=== PATIENT | male | born 1960 | race Caucasian/White ===

== ENCOUNTER 2018-04-05 17:40 | Observation (INO) | payer OTHER ==
[2018-04-05] MEDS ORDERED: SODIUM CHLORIDE 0.9% 500 ML IV STA (18:02)
--- NOTE | 2018-04-05 18:06 | ED ---
General Adult HPI - General Chief complaint: Chest Pain Stated complaint: chest pain Time Seen by Provider: 04/05/18 17:50 Source: patient, RN notes reviewed, old records reviewed Mode of arrival: wheelchair Limitations: no limitations - History of Present Illness Initial comments: 57-year-old male presents for evaluation of generalized weakness, fatigue and some heart palpitations. Patient states that on he was moving some furniture, did become quite fatigued. He states he rested all day Friday. At this time he had some central chest pain and palpitations. Patient is uncertain if this was pain or more of "anxiety in the chest". No radiating symptoms. His had some nausea without significant vomiting. No diarrhea. No fever but he has been chilled. Patient is on [place] 10 for chronic low back pain , he states he may have taken an extra one of these on Friday. Denies any significant worsening of his chronic low back pain. No abdominal pain. Denies diaphoresis. No known history of CAD. - Related Data Allergies Allergy/AdvReac Type Severity Reaction Status Date / Time levofloxacin [From Levaquin] Allergy Unknown Verified 04/05/18 17:46 Review of Systems ROS Statement: Those systems with pertinent positive or pertinent negative responses have been documented in the HPI. ROS Other: All systems not noted in ROS Statement are negative. Past Medical History Past Medical History: Hyperlipidemia History of Any Multi-Drug Resistant Organisms: None Reported Past Surgical History: Orthopedic Surgery Additional Past Surgical History / Comment(s): back and neck surgery Past Psychological History: No Psychological Hx Reported Smoking Status: Former smoker Past Alcohol Use History: Daily Past Drug Use History: None Reported General Exam Limitations: no limitations General appearance: alert, in no apparent distress Head exam: Present: atraumatic, normocephalic Eye exam: Present: normal appearance, PERRL, EOMI ENT exam: Present: normal exam Neck exam: Present: normal inspection. Absent: tenderness, meningismus Respiratory exam: Present: normal lung sounds bilaterally. Absent: respiratory distress Cardiovascular Exam: Present: regular rate, normal rhythm GI/Abdominal exam: Present: soft. Absent: distended, tenderness Extremities exam: Present: normal inspection, normal capillary refill. Absent: pedal edema Neurological exam: Present: alert, oriented X3, CN II-XII intact. Absent: motor sensory deficit Psychiatric exam: Present: normal affect, normal mood Skin exam: Present: warm, dry, intact. Absent: cyanosis, diaphoretic Course Vital Signs 04/05/18 04/05/18 17:41 18:19 Temperature 98.6 F Pulse Rate 79 56 L Respiratory 16 18 Rate Blood Pressure 187/101 156/87 O2 Sat by Pulse 99 99 Oximetry - Reevaluation(s) Reevaluation #1: 04/05/18 19:12 On reevaluation, patient has continued palpitations and mild chest tightness. EKG Findings - EKG Comments: EKG Findings:: EKG shows sinus bradycardia with marked sinus arrhythmia, rate of 52, CO interval 124, QRS duration 90, QTC [address] segment elevation Medical Decision Making - Medical Decision Making 57-year-old male with chest pain and palpitations. Chest x-ray obtained, negative for focal pneumonia or acute findings. EKG shows sinus bradycardia with sinus arrhythmia no definitive signs of ischemia. CBC is unremarkable, CMP within normal limits. Initial troponin is negative. Urinalysis does show 1 + ketones, there may be a component of dehydration. Patient will be placed in observation for telemetry, serial cardiac enzymes, and cardiology consultation. - Lab Data Result diagrams: 04/05/18 18:05 04/05/18 18:05 Lab Results 04/05/18 04/05/18 04/05/18 Range/Units 18:05 18:05 18:05 WBC 7.1 (3.8-10.6) k/uL RBC 4.59 (4.30-5.90) m/uL Hgb 14.3 (13.0-17.5) gm/dL Hct 41.1 (39.0-53.0) % MCV 89.6 (80.0-100.0) fL MCH 31.1 (25.0-35.0) pg MCHC 34.7 (31.0-37.0) g/dL RDW 12.8 (11.5-15.5) % Plt Count 169 (150-450) k/uL Neutrophils % 54 % Lymphocytes % 34 % Monocytes % 8 % Eosinophils % 2 % Basophils % 0 % Neutrophils # 3.8 (1.3-7.7) k/uL Lymphocytes # 2.4 (1.0-4.8) k/uL Monocytes # 0.5 (0-1.0) k/uL Eosinophils # 0.1 (0-0.7) k/uL Basophils # 0.0 (0-0.2) k/uL PT (9.0-12.0) sec INR (<1.2) APTT (22.0-30.0) sec D-Dimer (<0.60) mg/L FEU Sodium 142 (137-145) mmol/L Potassium 3.7 (3.5-5.1) mmol/L Chloride 107 (98-107) mmol/L Carbon Dioxide 22 (22-30) mmol/L Anion Gap 13 mmol/L BUN 14 (9-20) mg/dL Creatinine 0.80 (0.66-1.25) mg/dL Est GFR (CKD-EPI)AfAm >90 (>60 ml/min/1.73 sqM) Est GFR (CKD-EPI)NonAf >90 (>60 ml/min/1.73 sqM) Glucose 98 (74-99) mg/dL Plasma Lactic Acid [place] (0.7-2.0) mmol/L Calcium 9.4 (8.4-10.2) mg/dL Magnesium 2.1 (1.6-2.3) mg/dL Total Bilirubin 0.7 (0.2-1.3) mg/dL AST 29 (17-59) U/L ALT 41 (21-72) U/L Alkaline Phosphatase 49 (38-126) U/L Total Creatine Kinase 224 H (55-170) U/L CK-MB (CK-2) 0.8 (0.0-2.4) ng/mL CK-MB (CK-2) Rel Index 0.4 Troponin I <0.012 (0.000-0.034) ng/mL NT-Pro-B Natriuret Pep pg/mL Total Protein 6.4 (6.3-8.2) g/dL Albumin 4.4 (3.5-5.0) g/dL Urine Color Urine Appearance (Clear) Urine pH (5.0-8.0) Ur Specific [place] (1.001-1.035) Urine Protein (Negative) Urine Glucose (UA) (Negative) Urine Ketones (Negative) Urine Blood (Negative) Urine Nitrite (Negative) Urine Bilirubin (Negative) Urine Urobilinogen (<2.0) mg/dL Ur Leukocyte Esterase (Negative) 04/05/18 04/05/18 04/05/18 Range/Units 18:05 18:05 18:05 WBC (3.8-10.6) k/uL RBC (4.30-5.90) m/uL Hgb (13.0-17.5) gm/dL Hct (39.0-53.0) % MCV (80.0-100.0) fL MCH (25.0-35.0) pg MCHC (31.0-37.0) g/dL RDW (11.5-15.5) % Plt Count (150-450) k/uL Neutrophils % % Lymphocytes % % Monocytes % % Eosinophils % % Basophils % % Neutrophils # (1.3-7.7) k/uL Lymphocytes # (1.0-4.8) k/uL Monocytes # (0-1.0) k/uL Eosinophils # (0-0.7) k/uL Basophils # (0-0.2) k/uL PT 11.4 (9.0-12.0) sec INR 1.2 H (<1.2) APTT 24.8 (22.0-30.0) sec D-Dimer (<0.60) mg/L FEU Sodium (137-145) mmol/L Potassium (3.5-5.1) mmol/L Chloride (98-107) mmol/L Carbon Dioxide (22-30) mmol/L Anion Gap mmol/L BUN (9-20) mg/dL Creatinine (0.66-1.25) mg/dL Est GFR (CKD-EPI)AfAm (>60 ml/min/1.73 sqM) Est GFR (CKD-EPI)NonAf (>60 ml/min/1.73 sqM) Glucose (74-99) mg/dL Plasma Lactic Acid [place] 1.0 (0.7-2.0) mmol/L Calcium (8.4-10.2) mg/dL Magnesium (1.6-2.3) mg/dL Total Bilirubin (0.2-1.3) mg/dL AST (17-59) U/L ALT (21-72) U/L Alkaline Phosphatase (38-126) U/L Total Creatine Kinase (55-170) U/L CK-MB (CK-2) (0.0-2.4) ng/mL CK-MB (CK-2) Rel Index Troponin I (0.000-0.034) ng/mL NT-Pro-B Natriuret Pep 122 pg/mL Total Protein (6.3-8.2) g/dL Albumin (3.5-5.0) g/dL Urine Color Urine Appearance (Clear) Urine pH (5.0-8.0) Ur Specific [place] (1.001-1.035) Urine Protein (Negative) Urine Glucose (UA) (Negative) Urine Ketones (Negative) Urine Blood (Negative) Urine Nitrite (Negative) Urine Bilirubin (Negative) Urine Urobilinogen (<2.0) mg/dL Ur Leukocyte Esterase (Negative) 04/05/18 04/05/18 Range/Units 18:05 18:15 WBC (3.8-10.6) k/uL RBC (4.30-5.90) m/uL Hgb (13.0-17.5) gm/dL Hct (39.0-53.0) % MCV (80.0-100.0) fL MCH (25.0-35.0) pg MCHC (31.0-37.0) g/dL RDW (11.5-15.5) % Plt Count (150-450) k/uL Neutrophils % % Lymphocytes % % Monocytes % % Eosinophils % % Basophils % % Neutrophils # (1.3-7.7) k/uL Lymphocytes # (1.0-4.8) k/uL Monocytes # (0-1.0) k/uL Eosinophils # (0-0.7) k/uL Basophils # (0-0.2) k/uL PT (9.0-12.0) sec INR (<1.2) APTT (22.0-30.0) sec D-Dimer 0.32 (<0.60) mg/L FEU Sodium (137-145) mmol/L Potassium (3.5-5.1) mmol/L Chloride (98-107) mmol/L Carbon Dioxide (22-30) mmol/L Anion Gap mmol/L BUN (9-20) mg/dL Creatinine (0.66-1.25) mg/dL Est GFR (CKD-EPI)AfAm (>60 ml/min/1.73 sqM) Est GFR (CKD-EPI)NonAf (>60 ml/min/1.73 sqM) Glucose (74-99) mg/dL Plasma Lactic Acid [place] (0.7-2.0) mmol/L Calcium (8.4-10.2) mg/dL Magnesium (1.6-2.3) mg/dL Total Bilirubin (0.2-1.3) mg/dL AST (17-59) U/L ALT (21-72) U/L Alkaline Phosphatase (38-126) U/L Total Creatine Kinase (55-170) U/L CK-MB (CK-2) (0.0-2.4) ng/mL CK-MB (CK-2) Rel Index Troponin I (0.000-0.034) ng/mL NT-Pro-B Natriuret Pep pg/mL Total Protein (6.3-8.2) g/dL Albumin (3.5-5.0) g/dL Urine Color Yellow Urine Appearance Clear (Clear) Urine pH 7.5 (5.0-8.0) Ur Specific [place] 1.020 (1.001-1.035) Urine Protein Trace H (Negative) Urine Glucose (UA) Negative (Negative) Urine Ketones 1+ H (Negative) Urine Blood Negative (Negative) Urine Nitrite Negative (Negative) Urine Bilirubin Negative (Negative) Urine Urobilinogen <2.0 (<2.0) mg/dL Ur Leukocyte Esterase Negative (Negative) Disposition Clinical Impression: Chest pain Disposition: [facility] Condition: Stable Is patient prescribed a controlled substance at d/c from ED?: No Referrals: Edi Michelle MD [Primary Care Provider] - 1-2 days Decision to Admit Reason: Admit from EC Decision Date: 04/05/18 Decision Time: 20:16
[2018-04-05 18:21] LABS: Basophils % (A) 0 %; Eosinophils # (A) 0.1 k/uL (0-0.7); Eosinophils % (A) 2 %; HCT 41.1 % (39.0-53.0); HGB 14.3 gm/dL (13.0-17.5); Lymphocytes # (A) 2.4 k/uL (1.0-4.8); Lymphocytes % (A) 34 %; MCH 31.1 pg (25.0-35.0); MCHC 34.7 g/dL (31.0-37.0); MCV 89.6 fL (80.0-100.0); Mean Platelet Volume 6.6; Monocytes # (A) 0.5 k/uL (0-1.0); Monocytes % (A) 8 %; Neutrophils # (A) 3.8 k/uL (1.3-7.7); Neutrophils % (A) 54 %; Platelet Count 169 k/uL (150-450); RBC 4.59 m/uL (4.30-5.90); RDW 12.8 % (11.5-15.5); WBC 7.1 k/uL (3.8-10.6)
[2018-04-05 18:34] LABS: ALT 41 U/L (21-72); AST 29 U/L (17-59); Albumin 4.4 g/dL (3.5-5.0); Alkaline Phosphatase 49 U/L (38-126); Anion Gap 13 mmol/L; Blood Urea Nitrogen 14 mg/dL (9-20); Calcium 9.4 mg/dL (8.4-10.2); Carbon Dioxide 22 mmol/L (22-30); Chloride 107 mmol/L (98-107); Creatine Kinase 224 U/L (55-170); Glucose 98 mg/dL (74-99); Magnesium 2.1 mg/dL (1.6-2.3); Potassium 3.7 mmol/L (3.5-5.1); Sodium 142 mmol/L (137-145); Total Bilirubin 0.7 mg/dL (0.2-1.3); Total Protein 6.4 g/dL (6.3-8.2)
[2018-04-05 18:42] LABS: Appearance,Urine Clear (Clear); Bilirubin,Urine Negative (Negative); Blood,Urine Negative (Negative); Color,Urine Yellow; Glucose,Urine (UA) Negative (Negative); Ketones,Urine 1+ (Negative); Leukocyte Esterase,Urine Negative (Negative); Nitrite,Urine Negative (Negative); PH, Urine 7.5 (5.0-8.0); Protein,Urine Trace (Negative); Urobilinogen,Urine <2.0 mg/dL (<2.0)
[2018-04-05 18:44] LABS: INR 1.2 (<1.2); Partial Thromboplastin Time 24.8 sec (22.0-30.0); Prothrombin Time 11.4 sec (9.0-12.0)
--- NOTE | 2018-04-05 18:44 | XR ---
EXAMINATION TYPE: XR chest 2V DATE OF EXAM: 04/05/2018 COMPARISON: NONE INDICATION: Chest pain TECHNIQUE: Frontal and lateral views of the chest are obtained. FINDINGS: The heart size is normal. The pulmonary vasculature is normal. The lungs are clear. IMPRESSION: 1. No acute pulmonary process.
[2018-04-05 18:47] LABS: Creatine Kinase MB 0.8 ng/mL (0.0-2.4); Troponin I <0.012 ng/mL (0.000-0.034)
[2018-04-05] MEDS ORDERED: SODIUM CHLORIDE 0.9% 500 ML IV ONE (18:50)
[2018-04-05] MEDS ORDERED: NALOXONE 0.4 MG/ML 1 ML VIAL IV PRN (20:12)
[2018-04-05] MEDS ORDERED: ASPIRIN 325 MG TAB PO STA (20:14)
[2018-04-05] MEDS ORDERED: 0.9% NACL WITH KCL 20 MEQ/L 1,000 ML IV SCH (20:15)
[2018-04-05] MEDS ORDERED: METHOCARBAMOL 750 MG TAB PO PRN (20:40)
[2018-04-05] MEDS: HYDROcodone/APAP 10-325MG 1 EACH TAB PO PRN (20:43)
[2018-04-05] MEDS ORDERED: ATORVASTATIN 40 MG TAB PO SCH (21:00)
[2018-04-05] MEDS ORDERED: DOXAZOSIN 4 MG TAB PO SCH (21:00)
[2018-04-05 21:31] VITALS: BMI 26.2
[2018-04-06 00:23] LABS: Creatine Kinase 183 U/L (55-170)
[2018-04-06 00:37] LABS: Creatine Kinase MB 0.6 ng/mL (0.0-2.4); Troponin I <0.012 ng/mL (0.000-0.034)
[2018-04-06] MEDS: HYDROcodone/APAP 10-325MG 1 EACH TAB PO PRN (04:38)
[2018-04-06 06:22] LABS: Creatine Kinase 162 U/L (55-170)
[2018-04-06 06:35] LABS: Creatine Kinase MB 0.5 ng/mL (0.0-2.4); Troponin I <0.012 ng/mL (0.000-0.034)
[2018-04-06 07:41] VITALS: RESP 17; TEMP 97
[2018-04-06] MEDS ORDERED: POTASSIUM CHLORIDE ER 20 MEQ TAB.ER PO STA ×2 (09:59→10:57)
[2018-04-06 11:27] VITALS: BP 130/78; PULSE 78
--- NOTE | 2018-04-06 20:12 | CONS ---
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 He has also significant issues in terms of lumbar disc disease as well as cervical spine disease. He had previous back surgery and also about a year and a half ago or so, he had a neck surgery with cervical spine operation. He lives with chronic pain. He did some physical activity, moving some furniture around 2 days ago. He is on pain medication in the form of [place]. After doing some excessive physical work, he felt the pain was worse. He felt exhausted, tired, generalized weakness and had some fluttering feeling in the chest and palpitations and came into the hospital with these symptoms. These symptoms have resolved. He feels exhausted. Denies chest pain. Stable but limited functional capacity. He has history of a normal stress test more than 2-1/2 years ago. He is considering a redo back operation as well. PAST MEDICAL HISTORY: 1. Degenerative joint disease. 2. Hyperlipidemia. 3. History of prior back/lumbar spine and also cervical spine surgery. SOCIAL HISTORY: Quit smoking several years ago. Does not consume alcohol. MEDICATIONS: At home include [place] for pain control, Crestor 20 mg daily, Robaxin for muscle relaxant, aspirin 81 mg daily. ALLERGIES: LEV[place]QUIN. EXAMINATION: Blood pressure is 130/70, pulse rate is 78 per minute and regular HEENT: Unremarkable. Fundus was not examined by me. NECK: Supple. No JVD. I do not hear a carotid bruit. There is no thyromegaly. HEART: Reveals S1, S2 heard normally without a rub, murmur or gallop. LUNGS: Clear. ABDOMEN: Soft, nontender. Lower extremities reveal normal pulses. No edema. Central nervous system is grossly within normal limits. Laboratory data revealed that his troponins are unremarkable. EKG revealed a sinus mechanism without any significant ST-T changes. Laboratory data are within normal limits. IMPRESSION: 1. Generalized fatigue, exhaustion. 2. Atypical chest pain. 3. Back discomfort. 4. History of previous cervical and lumbar spine surgery. RECOMMENDATIONS: I am recommending that no aggressive intervention is necessary at this time. The patient's pain seems atypical. I am recommending that he can be discharged and he will call our office and we will set up for an outpatient stress testing and evaluation by Dr. Kirkland who he sees regularly in the office. Thank you very much for the consult. MMLUNAL / IJN: [id number] /
--- NOTE | 2018-04-06 21:57 | HP ---
HISTORY AND PHYSICAL This is a combination history and physical/discharge summary. I am covering for Dr. Michelle. CHIEF COMPLAINT: Chest pain. HISTORY OF PRESENT ILLNESS: This 57-year-old gentleman with a past medical history of multiple medical problems including hyperlipidemia and history of DJD being followed by Dr. Michelle in the outpatient setting was admitted with chest pain and generalized weakness. The patient also has fatigue and heart palpitations also. The patient also has some anxiety. Patient admitted for further evaluation and treatment. Cardiology saw the patient and recommended outpatient followup. Dr. Lucila Rose cleared the patient for discharge at this time. Creatinine is normal. Troponins are negative also. There is no history of fever, rigors. No headache, loss of consciousness. PAST MEDICAL HISTORY: Hyperlipidemia and DJD. MEDICATIONS: Prior to admission home medications are noted. Ambien, Hytrin 10 mg q.h.s., Crestor, Robaxin 750 mg, [place] 10 mg, Avodart 0.5 mg daily. ALLERGIES: LEVAQUIN. FAMILY HISTORY: Two myocardial infarctions and skin cancer in the family. SOCIAL HISTORY: Previous history of smoking. REVIEW OF SYSTEMS: ENT: No diminished hearing or vision. CARDIOVASCULAR: As mentioned earlier. RESPIRATORY: As mentioned earlier. GI: No nausea, vomiting. : No dysuria. NERVOUS SYSTEM: No numbness or weakness. ALLERGY: None. MUSCULOSKELETAL: As mentioned earlier. HEMATOLOGY: No anemia. ENDOCRINE: No history of diabetes or hypothyroidism. CONSTITUTIONAL: As mentioned earlier. DERMATOLOGY: Negative. RHEUMATOLOGY: Negative. PSYCHIATRY: As mentioned earlier. PHYSICAL EXAMINATION: Alert and oriented x3. Blood pressure 130/70, respiration 17, temperature 97 degrees, pulse ox 97% on room air. HEENT: Conjunctivae normal. NECK: No JVD. CARDIOVASCULAR SYSTEM: muffled. No S3 or S4. RESPIRATORY: Breath sounds diminished at the bases. No rhonchi, no crackles. ABDOMEN: Soft, nontender. No mass palpable. LEGS: No edema, no swelling. NERVOUS SYSTEM: Higher functions as mentioned earlier. Moves all four limbs. No focal deficits. LYMPHATICS: No lymph nodes palpable in the neck, axillae or groin. SKIN: No rashes. LABS: CBC within normal limits. CMP is also normal. ASSESSMENT: 1. Chest pain for evaluation of possible microfracture, rule out possibly musculoskeletal. 2. Palpitations for evaluation. 3. Possible anxiety. 4. Hyperlipidemia. 5. History of degenerative joint disease. 6. Remote history of nicotine dependence. RECOMMENDATIONS AND DISCUSSION: In this 57-year-old woman who presented with multiple complex medical issues at this time I would recommend to continue the current medications. Otherwise, Cardiology saw the patient and recommended to add baby aspirin to current regimen and follow the patient in the outpatient setting. Otherwise, we will closely follow up with Dr. Michelle as well. The prognosis is guarded. The patient is stable. Further recommendations to follow. MMODL / IJN: [id number] / [id number]
[2018-04-07] MEDS ORDERED: ASPIRIN 81 MG PO SCH (09:00)
== END 2018-04-06 12:02 | disposition home or self-care (01) ==
LOC: EC 17:40 → 6SEL 20:14
PROVIDERS: ADMIT Hospitalist; ATTEND Hospitalist
DX: R07.89 Other chest pain (principal); R00.2 Palpitations; R53.1 Weakness; R53.83 Other fatigue; R11.0 Nausea; G89.29 Other chronic pain; M54.5 Low back pain; Z88.1 Allergy status to other antibiotic agents; E78.5 Hyperlipidemia, unspecified; Z87.891 Personal history of nicotine dependence; M51.9 Unspecified thoracic, thoracolumbar and lumbosacral intervertebral disc disorder; M50.90 Cervical disc disorder, unspecified, unspecified cervical region; M19.90 Unspecified osteoarthritis, unspecified site; F41.9 Anxiety disorder, unspecified; Z80.8 Family history of malignant neoplasm of other organs or systems; Z82.49 Family history of ischemic heart disease and other diseases of the circulatory system; Z79.891 Long term (current) use of opiate analgesic; Z79.82 Long term (current) use of aspirin; Z79.899 Other long term (current) drug therapy
CPT/HCPCS: 99285 ×2; 96360 ×2; 36415; 94760; 93005; 85379; 83880; 80053; 82550 ×2; 82553 ×2; 83605; 83735; 84484 ×2; 85025; 85610; 85730; 81003; 87040; 71046; G0378 ×2